=== PATIENT | male | born 1985 | race Caucasian/White ===

== ENCOUNTER 2021-05-03 14:47 | Inpatient (IN) | payer BC ==
[~2021-05-03] VITALS: Ht 177.8 cm; Wt 91.8 kg
[2021-05-03] MEDS ORDERED: BISACODYL 10 MG SUPP PR PRN (15:30)
[2021-05-03] MEDS ORDERED: ACETAMINOPHEN 325 MG TABLET PO PRN (15:30)
[2021-05-03] MEDS ORDERED: ONDANSETRON ODT 4 MG PO PRN (15:30)
[2021-05-03] MEDS ORDERED: DOCUSATE 100 MG CAPSULE PO PRN (15:30)
[2021-05-03] MEDS ORDERED: POLYETHYLENE GLYCOL 17 GM PACKET PO PRN (15:30)
[2021-05-03 17:31] VITALS: BP 145/89
[2021-05-03] MEDS ORDERED: NICOTINE 21 MG/24 HR PATCH.TD24 ONE (17:33)
[2021-05-03] MEDS ORDERED: PLEASE ENTER HEIGHT AND WEIGHT MC SCH (18:00)
[2021-05-03] MEDS: NICOTINE 21 MG/24 HR PATCH.TD24 TD SCH (18:05)
[2021-05-03] MEDS: LORazepam 1MG TABLET PO PRN (18:06)
[2021-05-03 19:17] VITALS: BP 136/86
[2021-05-03] MEDS: OXYcodone IR 5MG TABLET PO PRN (21:23)
[2021-05-03 23:25] LABS: MICROSCOPIC INDICATED
[2021-05-04] MEDS: OXYcodone IR 5MG TABLET PO PRN ×3 (05:23→19:07)
[2021-05-04 06:33] LABS: LDL/HDL RATIO 1.7 (0.5-3.0)
[2021-05-04 06:34] LABS: CHOL/HDL RATIO 3.5
[2021-05-04 07:55] VITALS: BP 112/78
[2021-05-04] MEDS: NICOTINE 21 MG/24 HR PATCH.TD24 TD SCH (09:30)
[2021-05-04] MEDS: LORazepam 1MG TABLET PO PRN ×2 (09:31→19:07)
[2021-05-04] MEDS: ESCITALOPRAM 10MG TABLET PO SCH (11:12)
[2021-05-04] MEDS ORDERED: VORT20TA PO (12:41)
[2021-05-04] MEDS ORDERED: AMPH20TA2 PO (12:41)
[2021-05-04 19:32] VITALS: BP 117/81
[2021-05-04] MEDS: MELATONIN 5 MG TABLET PO SCH ×2 (21:00→22:47)
[2021-05-04] MEDS ORDERED: TRAZODONE 50MG TABLET PO PRN (22:00)
[2021-05-05 05:39] LABS: BASOPHILS % (AUTO) 1 % (0-1); EOSINOPHILS % (AUTO) 3 % (1-7); LYMPHOCYTES % (AUTO) 24 % (22-44); MEAN CORPUSCULAR HEMOGLOBIN 33.4 pg (27.5-34.5); MEAN PLATELET VOLUME 8.7 fL (7.4-10.4); MONOCYTES % (AUTO) 9 % (2-9); NEUTROPHILS % (AUTO) 63 % (42-75); PLATELET COUNT 199 x10^3/uL (130-400); RED BLOOD COUNT 4.72 x10^6/uL (4.38-5.82); RED CELL DISTRIBUTION WIDTH 12.9 % (9.4-14.8)
[2021-05-05 05:54] LABS: ALANINE AMINOTRANSFERASE 215 U/L (12-78); ALBUMIN 3.2 g/dL (3.4-5.0); ANION GAP 6 mmol/L (5-15); CALCIUM 8.9 mg/dL (8.5-10.1); CHLORIDE 107 mmol/L (98-107); CREATININE 0.75 mg/dL (0.7-1.3)
[2021-05-05 05:56] LABS: ALKALINE PHOSPHATASE 80 U/L (45-117); BILIRUBIN,TOTAL 0.6 mg/dL (0.2-1.0); TOTAL PROTEIN 7.3 g/dL (6.4-8.2)
[2021-05-05 07:18] VITALS: BP 115/80
[2021-05-05] MEDS: ESCITALOPRAM 10MG TABLET PO SCH (09:21)
[2021-05-05] MEDS: NICOTINE 21 MG/24 HR PATCH.TD24 TD SCH (09:21)
[2021-05-05] MEDS: LORazepam 1MG TABLET PO PRN (09:56)
[2021-05-05] MEDS: OXYcodone IR 5MG TABLET PO PRN ×2 (12:12→21:19)
[2021-05-05 19:23] VITALS: BP 135/90
[2021-05-05] MEDS: TRAZODONE 50MG TABLET PO SCH (20:24)
[2021-05-06 07:24] VITALS: BP 113/76
[2021-05-06] MEDS: ESCITALOPRAM 10MG TABLET PO SCH (08:45)
[2021-05-06] MEDS: NICOTINE 21 MG/24 HR PATCH.TD24 TD SCH (08:46)
[2021-05-06] MEDS: LORazepam 1MG TABLET PO PRN ×2 (08:49→20:12)
[2021-05-06 19:11] VITALS: BP 131/85
[2021-05-06] MEDS: TRAZODONE 50MG TABLET PO SCH (20:12)
[2021-05-07] MEDS ORDERED: TRAZODONE 100MG TABLET PO PRN (07:00)
[2021-05-07 07:22] VITALS: BP 124/89
[2021-05-07] MEDS: NICOTINE 21 MG/24 HR PATCH.TD24 TD SCH (09:12)
[2021-05-07] MEDS: LORazepam 1MG TABLET PO PRN ×2 (09:13→20:29)
[2021-05-07] MEDS: ESCITALOPRAM 10MG TABLET PO SCH (09:13)
[2021-05-07 19:23] VITALS: BP 135/97
[2021-05-08 07:08] VITALS: BP 126/76
[2021-05-08] MEDS: ESCITALOPRAM 10MG TABLET PO SCH (08:39)
[2021-05-08] MEDS: LORazepam 1MG TABLET PO PRN (08:39)
[2021-05-08] MEDS: NICOTINE 21 MG/24 HR PATCH.TD24 TD SCH (08:40)
[2021-05-08] MEDS ORDERED: ESCI10TA97 PO (14:46)
[2021-05-08] MEDS ORDERED: NICO-587 TD (14:46)
[2021-05-08] MEDS ORDERED: TRAZ-175 PO (14:46)
== END 2021-05-08 15:32 | disposition home or self-care (01) | DRG 885 ==
LOC: 3E 16:36
PROVIDERS: ADMIT Psychiatry & Neurology Psychosomatic Medicine; ATTEND Psychiatry & Neurology Psychosomatic Medicine
DX: F33.2 Major depressive disorder, recurrent severe without psychotic features (principal); R45.851 Suicidal ideations; F17.210 Nicotine dependence, cigarettes, uncomplicated; Z79.899 Other long term (current) drug therapy; F43.10 Post-traumatic stress disorder, unspecified; G89.29 Other chronic pain; M54.9 Dorsalgia, unspecified; I10 Essential (primary) hypertension; F10.20 Alcohol dependence, uncomplicated; Y90.9 Presence of alcohol in blood, level not specified; S19.9XXA Unspecified injury of neck, initial encounter; X83.8XXA Intentional self-harm by other specified means, initial encounter; Z71.6 Tobacco abuse counseling
CPT/HCPCS: 36415; 71045; 80053; 80061; 81001; 85025; 87086; 93005